=== PATIENT | male | born 1970 | race Caucasian/White ===

== ENCOUNTER 2024-01-24 16:36 | Emergency (ER) | payer OTHER ==
[2024-01-24 17:19] LABS: BASOPHILS PERCENT AUTO 0.2 % (0.0-1.0); EOSINOPHILS PERCENT AUTO 0.1 % (1.0-3.0); HEMATOCRIT 43.6 % (40.0-54.0); HEMOGLOBIN 15.9 g/dL (14.0-18.0); LYMPHOCYTES PERCENT AUTO 12.1 % (20.5-50.1); MEAN CORPUSCULAR HEMOGLOBIN 31.9 pg (27.0-34.0); MEAN CORPUSCULAR HGB CONC 36.5 g/dL (33.0-35.0); MEAN CORPUSCULAR VOLUME 87.4 fL (80-100); MONOCYTES PERCENT AUTO 15.1 % (2-8); NEUTROPHILS PERCENT AUTO 72.5 % (42.2-75.2); PLATELET COUNT,PLT 163 10^3/uL (150-450); RED BLOOD CELL COUNT 4.99 10^6/uL (4.6-6.2); WHITE BLOOD CELL COUNT,WBC 12.2 10^3/uL (5.0-10.0)
[2024-01-24] MEDS: MVI, Adult with Vitamin K 10 ML, Folic Acid 1 MG, Thiamine 100 MG in Lactated Ringers 1... IV ONE (17:25)
[2024-01-24] MEDS: LORazepam 2 MG/ML SDV IVPUSH ONE ×2 (17:27→18:46)
[2024-01-24] MEDS: Sodium Chloride 0.9% 1,000 ML IV ONE (17:27)
[2024-01-24 17:28] LABS: PROTHROMBIN TIME 9.9 SEC (9.0-12.0); PTT,PARTIAL THROMBOPLSTIN TIME 24.8 SEC (22.0-34.0)
[2024-01-24] MEDS: Sodium Chloride 0.9% 10 ML Syringe FLUSH PRN (17:28)
[2024-01-24] MEDS: chlordiazePOXIDE 25 MG Cap PO ONE (17:29)
[2024-01-24 17:32] LABS: A/G RATIO 0.9; ALBUMIN 3.5 g/dL (3.4-5.0); BILIRUBIN TOTAL 1.4 mg/dL (0.2-1.0); BUN/CREATININE RATIO 16.3 (No establ ref range); CALCIUM 8.7 mg/dL (8.5-10.1); CREATININE 0.92 mg/dL (0.70-1.30); EST CRCL DRUG DOSING (CG) 99.58 mL/min; MAGNESIUM 1.8 mg/dL (1.8-2.4); PROTEIN TOTAL,TP 7.3 g/dL (6.4-8.2)
[2024-01-24] MEDS: Ondansetron 4 MG/2 ML SDV IVPUSH ONE (17:34)
[2024-01-24 17:37] LABS: LACTIC ACID 1.7 mmol/L (0.4-2.0)
[2024-01-24] MEDS: Ondansetron 8 MG in Sodium Chloride 0.9% 50 ML IV ONE (17:37)
[2024-01-24 17:44] LABS: ANION GAP 26.4 mEq/L (7-13)
[2024-01-24 17:46] LABS: POTASSIUM,K 2.4 mmol/L (3.5-5.1)
[2024-01-24] MEDS ORDERED: D5 1/2 NS w/ 40 mEq/L KCl 1,000 ML IV SCH (18:00)
[2024-01-24] MEDS: Aspirin 81 MG Tab.Chew PO ONE (18:13)
[2024-01-24] MEDS: Potassium Chloride 20 MEQ in Premix Bag 1 BAG IV ONE ×2 (18:13→20:38)
[2024-01-24] MEDS: Nitroglycerin 2% Oint 1 GM UD Packet TOP ONE (18:14)
[2024-01-24] MEDS: Magnesium Sulfate/D5W 1 GM/100 ML BAG IV ONE (18:14)
[2024-01-24] MEDS: Iopamidol 755 Mg/ML 100 ML Bottle IVPUSH ONE (19:05)
[2024-01-24 19:57] LABS: APPEARANCE,URINE CLEAR (CLEAR); BILIRUBIN,URINE SMALL (NEGATIVE); COLOR,URINE YELLOW (YELLOW); GLUCOSE,URINE NEGATIVE (NEGATIVE); KETONES,URINE >=160 (NEGATIVE); LEUKOCYTE ESTERASE,URINE NEGATIVE (NEGATIVE); NITRITE,URINE NEGATIVE (NEGATIVE); OCCULT BLOOD,URINE SMALL (NEGATIVE); PROTEIN,URINE 30 (NEGATIVE); UROBILINOGEN,URINE 0.2 mg/dL (0.2-1.0)
[2024-01-24 20:02] LABS: AMPHETAMINES,URINE NEGATIVE (NEGATIVE); BARBITURATES,URINE NEGATIVE (NEGATIVE); BENZODIAZEPINE,URINE NEGATIVE (NEGATIVE); MDMA (ECSTASY), URINE NEGATIVE (NEGATIVE); METHADONE,URINE NEGATIVE (NEGATIVE); METHAMPHETAMINES,URINE NEGATIVE (NEGATIVE); OPIATES,URINE NEGATIVE (NEGATIVE); OXYCODONE,URINE NEGATIVE (NEGATIVE); PHENCYCLIDINE,URINE NEGATIVE (NEGATIVE); TCA,URINE NEGATIVE (NEGATIVE)
[2024-01-24 20:06] LABS: BACTERIA,URINE FEW /HPF (0-FEW/HPF); EPITHELIAL CELLS,URINE FEW /HPF (NOT SEEN); MUCUS,URINE FEW /LPF (NOT SEEN); WBC,URINE 0-5 /HPF (0-5/HPF)
[2024-01-24] MEDS: Heparin Sodium 5,000 Units/ML Vial IVPUSH ONE (20:10)
[2024-01-24] MEDS: Heparin Sodium/0.45% NaCl 25,000 UNITS/500 ML BAG IV SCH (20:11)
[2024-01-24 20:22] VITALS: BP 127/99; PULSE 88
[2024-01-24] MEDS: Nitroglycerin 2% Oint 1 GM UD Packet ONE (22:10)
== END 2024-01-24 22:25 ==
LOC: DL.ED 16:36
DX: I21.9 Acute myocardial infarction, unspecified (principal); K21.9 Gastro-esophageal reflux disease without esophagitis; F17.210 Nicotine dependence, cigarettes, uncomplicated; Z79.899 Other long term (current) drug therapy; Z79.01 Long term (current) use of anticoagulants; Z86.16 Personal history of COVID-19
CPT/HCPCS: 36415; 70450; 71045; 71275; 80053; 80143; 80179; 80305; 81001; 82550; 82607; 83605; 83690; 83735; 84484; 85025; 85379; 85610; 85730; 87040; 93005; 96365; 96366; 96367; 96368; 96375; 96376; 99285; A9270; J1644; J2060; J2405; J3411; J3475; J3480; J3490; J7030; J7120; Q9967; 93010

== ENCOUNTER 2024-02-18 14:21 | Emergency (ER) | payer OTHER ==
[2024-02-18 14:35] VITALS: BP 130/90; PULSE 80
[2024-02-18] MEDS ORDERED: Dexamethasone 4 MG/ML SDV IVPUSH ONE (16:01)
[2024-02-18] MEDS ORDERED: Ketorolac 30 MG/ML SDV IVPUSH ONE (16:01)
[2024-02-18] MEDS ORDERED: Lidocaine 5% 700 MG Patch TOP ONE (16:02)
[2024-02-18] MEDS ORDERED: Acetaminophen/HYDROcodone 325-5 MG Tab PO ONE (16:02)
[2024-02-18] MEDS: Dexamethasone 4 MG/ML SDV IM ONE (17:11)
== END 2024-02-18 17:27 | disposition home or self-care (01) ==
LOC: DL.ED 14:21
DX: G57.12 Meralgia paresthetica, left lower limb (principal); F10.120 Alcohol abuse with intoxication, uncomplicated; Z79.899 Other long term (current) drug therapy; Y90.9 Presence of alcohol in blood, level not specified
CPT/HCPCS: 72100; 96372; 99283; 99284; J1100

== ENCOUNTER 2024-03-30 15:07 | Observation (INO) | payer OTHER ==
[2024-03-30 16:22] LABS: BASOPHILS PERCENT AUTO 0.2 % (0.0-1.0); HEMOGLOBIN 15.1 g/dL (14.0-18.0); MEAN CORPUSCULAR HGB CONC 34.3 g/dL (33.0-35.0); MEAN CORPUSCULAR VOLUME 99.1 fL (80-100); NEUTROPHILS PERCENT AUTO 73.8 % (42.2-75.2); PLATELET COUNT,PLT 72 10^3/uL (150-450); RED BLOOD CELL COUNT 4.44 10^6/uL (4.6-6.2); WHITE BLOOD CELL COUNT,WBC 5.7 10^3/uL (5.0-10.0)
[2024-03-30] MEDS: MVI, Adult with Vitamin K 10 ML, Folic Acid 1 MG, Thiamine 100 MG in Lactated Ringers 1... IV ONE (16:32)
[2024-03-30 16:33] LABS: A/G RATIO 1.4; ALANINE AMINOTRANSFERASE,ALT 174 U/L (16-63); ALBUMIN 4.5 g/dL (3.4-5.0); ALKALINE PHOSPHATASE 61 U/L (46-116); ANION GAP 25.5 mEq/L (7-13); ASPARTATE AMNIOTRANSFERASE,AST 205 U/L (15-37); BILIRUBIN TOTAL 1.7 mg/dL (0.2-1.0); BLOOD UREA NITROGEN,BUN 17 mg/dL (7-18); BUN/CREATININE RATIO 16.5 (No establ ref range); CALCIUM 9.3 mg/dL (8.5-10.1); CARBON DIOXIDE,CO2 22 mmol/L (21-32); CHLORIDE,CL 92 mmol/L (98-107); CREATININE 1.03 mg/dL (0.70-1.30); GLUCOSE RANDOM 90 mg/dL (70-99); POTASSIUM,K 3.5 mmol/L (3.5-5.1); PROTEIN TOTAL,TP 7.7 g/dL (6.4-8.2); SODIUM,NA 136 mmol/L (136-145)
[2024-03-30 16:35] LABS: ESTIMATED GFR 86 mL/min (>=60); ETHANOL BLOOD MEDICAL < 3 mg/dL (0)
[2024-03-30] MEDS: Iopamidol 612 MG/ML 100 ML Bottle IVPUSH ONE (16:58)
[2024-03-30] MEDS: chlordiazePOXIDE 25 MG Cap PO ONE (17:21)
[2024-03-30] MEDS: Sodium Chloride 0.9% 1,000 ML IV ONE (17:24)
[2024-03-30] MEDS ORDERED: LORazepam 2 MG/ML SDV IV SCH ×2 (19:00)
[2024-03-30] MEDS ORDERED: LORazepam 1 MG Tab PO SCH ×2 (19:00)
[2024-03-30] MEDS: Multivitamin Tab PO SCH (20:34)
[2024-03-30] MEDS: Thiamine 100 MG Tab PO SCH (20:34)
[2024-03-30] MEDS: Folic Acid 1 MG Tab PO SCH (20:34)
[2024-03-30] MEDS: chlordiazePOXIDE 25 MG Cap PO SCH (20:35)
[2024-03-30] MEDS: LORazepam 2 MG/ML SDV IV PRN (21:18)
[2024-03-30] MEDS: Ketorolac 30 MG/ML SDV IVPUSH SCH (21:18)
[2024-03-30] MEDS: oxyCODONE 5 MG Tab PO PRN (21:18)
[2024-03-31 06:45] LABS: A/G RATIO 1.3; ALBUMIN 3.6 g/dL (3.4-5.0); BILIRUBIN TOTAL 1.3 mg/dL (0.2-1.0); BUN/CREATININE RATIO 21.5 (No establ ref range); CALCIUM 8.7 mg/dL (8.5-10.1); CREATININE 0.93 mg/dL (0.70-1.30); EST CRCL DRUG DOSING (CG) 98.51 mL/min; PROTEIN TOTAL,TP 6.4 g/dL (6.4-8.2)
[2024-03-31] MEDS: Sodium Chloride 0.9% 10 ML Syringe FLUSH PRN (08:09)
[2024-03-31] MEDS: Nicotine 7 MG/24 Hr Patch TRDERM SCH (09:36)
[2024-04-01] MEDS: Check Patch TRDERM SCH (01:29)
[2024-04-01] MEDS: Ondansetron 4 MG/2 ML SDV IVPUSH PRN (14:35)
[2024-04-02] MEDS: Potassium Chloride 10 MEQ Tab.ER PO ONE (09:00)
[2024-04-02] MEDS: Ketorolac 30 MG/ML SDV IM ONE (09:25)
[2024-04-02 10:04] VITALS: BP 124/80; PULSE 86
== END 2024-04-02 10:25 | disposition home or self-care (01) ==
LOC: DL.ED 15:07 → DL.MS 18:33
PROVIDERS: ADMIT Internal Medicine; ATTEND Internal Medicine
DX: F10.130 Alcohol abuse with withdrawal, uncomplicated (principal); G57.12 Meralgia paresthetica, left lower limb; E87.6 Hypokalemia; K76.0 Fatty (change of) liver, not elsewhere classified; K20.90 Esophagitis, unspecified without bleeding; K52.9 Noninfective gastroenteritis and colitis, unspecified; F43.10 Post-traumatic stress disorder, unspecified; K82.8 Other specified diseases of gallbladder; K21.9 Gastro-esophageal reflux disease without esophagitis; F17.210 Nicotine dependence, cigarettes, uncomplicated; Z79.899 Other long term (current) drug therapy
CPT/HCPCS: 36415; 71045; 74177; 76705; 80053; 80307; 83690; 85025; A9270-GY; J1885; J2060; J2405; J3411; J3490; J7030; J7120; Q9967

== ENCOUNTER 2024-10-09 17:57 | Emergency (ER) | payer MEDICARE, OTHER ==
[2024-10-09 18:15] VITALS: BP 162/89; PULSE 103
[2024-10-09] MEDS: Ondansetron 4 MG Tab.DIS PO ONE (18:23)
[2024-10-09] MEDS ORDERED: Sodium Chloride 0.9% 10 ML Syringe FLUSH PRN (18:30)
[2024-10-09] MEDS: Sodium Chloride 0.9% 1,000 ML IV ONE ×2 (18:39→19:17)
[2024-10-09 18:45] LABS: BASOPHILS PERCENT AUTO 0.1 % (0.0-1.0); HEMATOCRIT 46.9 % (40.0-54.0); HEMOGLOBIN 16.4 g/dL (14.0-18.0); LYMPHOCYTES PERCENT AUTO 19.5 % (20.5-50.1); MEAN CORPUSCULAR HEMOGLOBIN 32.4 pg (27.0-34.0); MEAN CORPUSCULAR VOLUME 92.7 fL (80-100); MONOCYTES PERCENT AUTO 14.3 % (2-8); NEUTROPHILS PERCENT AUTO 66.1 % (42.2-75.2); PLATELET COUNT,PLT 125 10^3/uL (150-450); RED BLOOD CELL COUNT 5.06 10^6/uL (4.6-6.2); WHITE BLOOD CELL COUNT,WBC 7.5 10^3/uL (5.0-10.0)
[2024-10-09 18:51] LABS: AMPHETAMINES,URINE NEGATIVE (NEGATIVE); BARBITURATES,URINE NEGATIVE (NEGATIVE); BENZODIAZEPINE,URINE NEGATIVE (NEGATIVE); MDMA (ECSTASY), URINE NEGATIVE (NEGATIVE); METHADONE,URINE NEGATIVE (NEGATIVE); METHAMPHETAMINES,URINE NEGATIVE (NEGATIVE); OPIATES,URINE NEGATIVE (NEGATIVE); OXYCODONE,URINE NEGATIVE (NEGATIVE); PHENCYCLIDINE,URINE NEGATIVE (NEGATIVE); TCA,URINE NEGATIVE (NEGATIVE)
[2024-10-09 19:08] LABS: BLOOD UREA NITROGEN,BUN 17 mg/dL (7-18); CALCIUM 9.7 mg/dL (8.5-10.1); CHLORIDE,CL 87 mmol/L (98-107); CREATININE 1.13 mg/dL (0.70-1.30); GLUCOSE RANDOM 102 mg/dL (70-99); POTASSIUM,K 3.1 mmol/L (3.5-5.1)
[2024-10-09 19:13] LABS: ANION GAP 25.1 mEq/L (7-13); CARBON DIOXIDE,CO2 21 mmol/L (21-32); SODIUM,NA 130 mmol/L (136-145)
[2024-10-09] MEDS: LORazepam 2 MG/ML SDV IVPUSH ONE (19:13)
[2024-10-09 19:26] LABS: ESTIMATED GFR 77 mL/min (>=60)
[2024-10-09] MEDS: Ondansetron 4 MG/2 ML SDV IVPUSH ONE (20:00)
[2024-10-09] MEDS: diphenhydrAMINE 50 MG/ML SDV IVPUSH ONE (20:07)
[2024-10-09] MEDS: Potassium Chloride 10 MEQ Tab.ER PO ONE (20:07)
[2024-10-09] MEDS: Take Home: Ondansetron 4 MG Tab.DIS, 5 Tab Pack PO ONE (20:12)
== END 2024-10-09 20:21 | disposition home or self-care (01) ==
LOC: DL.ED 17:57
DX: F10.230 Alcohol dependence with withdrawal, uncomplicated (principal); I10 Essential (primary) hypertension; E78.00 Pure hypercholesterolemia, unspecified; K21.9 Gastro-esophageal reflux disease without esophagitis; F17.210 Nicotine dependence, cigarettes, uncomplicated; Z86.16 Personal history of COVID-19; Z79.899 Other long term (current) drug therapy; Y90.0 Blood alcohol level of less than 20 mg/100 ml
CPT/HCPCS: 36415; 80048; 80305; 80307; 83735; 84484; 85025; 96361; 96374; 96375; 99285; A9270; J1200; J2060; J2405; J7030; Q0162

== ENCOUNTER 2024-12-07 16:31 | Emergency (ER) | payer MEDICARE, OTHER ==
[2024-12-07 17:00] LABS: BASOPHILS PERCENT AUTO 0.2 % (0.0-1.0); HEMATOCRIT 43.4 % (40.0-54.0); HEMOGLOBIN 15.3 g/dL (14.0-18.0); LYMPHOCYTES PERCENT AUTO 17.5 % (20.5-50.1); MEAN CORPUSCULAR HEMOGLOBIN 33.8 pg (27.0-34.0); MEAN CORPUSCULAR HGB CONC 35.3 g/dL (33.0-35.0); MONOCYTES PERCENT AUTO 9.4 % (2-8); NEUTROPHILS PERCENT AUTO 72.9 % (42.2-75.2); PLATELET COUNT,PLT 129 10^3/uL (150-450); RED BLOOD CELL COUNT 4.52 10^6/uL (4.6-6.2); WHITE BLOOD CELL COUNT,WBC 10.1 10^3/uL (5.0-10.0)
[2024-12-07 17:03] LABS: APPEARANCE,URINE CLEAR (CLEAR); BILIRUBIN,URINE LARGE (NEGATIVE); COLOR,URINE YELLOW (YELLOW); GLUCOSE,URINE NEGATIVE (NEGATIVE); KETONES,URINE 40 (NEGATIVE); LEUKOCYTE ESTERASE,URINE NEGATIVE (NEGATIVE); NITRITE,URINE NEGATIVE (NEGATIVE); OCCULT BLOOD,URINE TRACE-INTACT (NEGATIVE); PROTEIN,URINE 30 (NEGATIVE)
[2024-12-07 17:05] LABS: AMPHETAMINES,URINE NEGATIVE (NEGATIVE); BARBITURATES,URINE NEGATIVE (NEGATIVE); BENZODIAZEPINE,URINE POSITIVE (NEGATIVE); MDMA (ECSTASY), URINE NEGATIVE (NEGATIVE); METHADONE,URINE NEGATIVE (NEGATIVE); METHAMPHETAMINES,URINE NEGATIVE (NEGATIVE); OPIATES,URINE NEGATIVE (NEGATIVE); OXYCODONE,URINE NEGATIVE (NEGATIVE); PHENCYCLIDINE,URINE NEGATIVE (NEGATIVE); TCA,URINE NEGATIVE (NEGATIVE)
[2024-12-07 17:13] LABS: BACTERIA,URINE RARE /HPF (0-FEW/HPF); EPITHELIAL CELLS,URINE RARE /HPF (NOT SEEN); MUCUS,URINE MODERATE /LPF (NOT SEEN); RBC,URINE 0-5 /HPF (0-5); WBC,URINE NOT SEEN /HPF (0-5/HPF)
[2024-12-07 17:31] LABS: A/G RATIO 1.2; ALANINE AMINOTRANSFERASE,ALT 36 U/L (16-63); ALBUMIN 4.1 g/dL (3.4-5.0); ALKALINE PHOSPHATASE 89 U/L (46-116); ANION GAP 14.3 mEq/L (7-13); ASPARTATE AMNIOTRANSFERASE,AST 37 U/L (15-37); BILIRUBIN TOTAL 1.2 mg/dL (0.2-1.0); BLOOD UREA NITROGEN,BUN 14 mg/dL (7-18); BUN/CREATININE RATIO 18.9 (No establ ref range); CALCIUM 9.6 mg/dL (8.5-10.1); CARBON DIOXIDE,CO2 30 mmol/L (21-32); CHLORIDE,CL 98 mmol/L (98-107); CREATININE 0.74 mg/dL (0.70-1.30); EST CRCL DRUG DOSING (CG) 122.34 mL/min; GLUCOSE RANDOM 105 mg/dL (70-99); MAGNESIUM 1.9 mg/dL (1.8-2.4); POTASSIUM,K 3.3 mmol/L (3.5-5.1); PROTEIN TOTAL,TP 7.4 g/dL (6.4-8.2); SODIUM,NA 139 mmol/L (136-145); TSH ULTRASENSITIVE 1.08 uIU/mL (0.36-3.74)
[2024-12-07 17:32] LABS: ESTIMATED GFR 106 mL/min (>=60); ETHANOL BLOOD MEDICAL < 3 mg/dL (0)
[2024-12-07 17:33] VITALS: BP 171/84; PULSE 68
[2024-12-07] MEDS: Potassium Chloride 10 MEQ Tab.ER PO ONE (17:40)
[2024-12-07] MEDS: Nicotine 21 MG/24 Hr Patch TRDERM ONE (17:52)
== END 2024-12-07 18:09 ==
LOC: DL.ED 16:31
DX: Z02.89 Encounter for other administrative examinations (principal); I10 Essential (primary) hypertension; K21.9 Gastro-esophageal reflux disease without esophagitis; E78.00 Pure hypercholesterolemia, unspecified; Z79.899 Other long term (current) drug therapy; Z86.16 Personal history of COVID-19
CPT/HCPCS: 36415; 80053; 80305; 80307; 81001; 83735; 84443; 85025; 99284; A9270; 99285